=== PATIENT | male | born 1950 | race Caucasian/White ===

== ENCOUNTER 2024-12-31 23:06 | Inpatient (IN) | payer MEDICARE ==
[~2024-12-31] VITALS: Ht 177.8 cm; Wt 77.1 kg
[2024-12-31] MEDS ORDERED: DARU1TAB PO (23:53)
[2024-12-31] MEDS ORDERED: DOLU1TAB2 PO (23:53)
[2024-12-31] MEDS ORDERED: ATOR10TA PO (23:53)
[2025-01-01] MEDS: ONDANSETRON 4 MG/2 ML VIAL IV ONE (01:26)
[2025-01-01] MEDS: FAMOTIDINE. 20 MG/2 ML VIAL IV ONE (01:26)
[2025-01-01 01:28] LABS: BASOPHILS % (AUTO) 0.3 % (0.0-2.0); HEMATOCRIT 46.1 % (36.7-47.1); HEMOGLOBIN 15.6 g/dL (12.5-16.3); LYMPHOCYTES # (AUTO) 2.6 K/uL (0.8-4.8); LYMPHOCYTES % (AUTO) 16.4 % (20.5-51.5); MEAN CORPUSCULAR HEMOGLOBIN 30.4 uug (23.8-33.4); MEAN CORPUSCULAR HGB CONC 34 g/dL (32.5-36.3); MEAN CORPUSCULAR VOLUME 89.9 fL (73.0-96.2); MONOCYTES # (AUTO) 1.3 K/uL (0.1-1.30); MONOCYTES % (AUTO) 8.5 % (0.0-11.0); NEUTROPHILS # (AUTO) 11.8 K/uL (1.8-8.9); NEUTROPHILS % (AUTO) 74.8 % (38.5-71.5); PLATELET COUNT (AUTO) 255 K/uL (152-348); RED BLOOD CELL COUNT(AUTO) 5.13 MIL/uL (4.06-5.63); RED CELL DISTRIBUTION WIDTH 14.2 % (12.1-16.2); WHITE BLOOD COUNT (AUTO) 15.8 K/uL (3.6-10.2)
[2025-01-01] MEDS: IV NS 1000 ML 1,000 ML IV ONE (01:33)
[2025-01-01 01:38] LABS: DIFFERENTIAL COMMENT 1
[2025-01-01 01:39] LABS: CALCIUM 10.8 mg/dL (8.5-10.1); CARBON DIOXIDE 37 mmol/L (21-32); CHLORIDE 83 mmol/L (98-107); CREATININE 3.3 mg/dL (0.6-1.3); GLUCOSE 145 mg/dL (74-106); POTASSIUM 3.8 mmol/L (3.5-5.1); SODIUM SERUM 130 mmol/L (136-145); UREA NITROGEN, BLOOD 54 mg/dL (7-18)
[2025-01-01 01:45] LABS: ALANINE AMINOTRANSFERASE 22 U/L (16-63); ALBUMIN 4.1 g/dL (3.4-5.0); ALKALINE PHOSPHATASE 70 U/L (50-136); ASPARTATE AMINOTRANSFERASE 34 U/L (15-37); BILIRUBIN,DIRECT 0.4 mg/dL (0.0-0.2); BILIRUBIN,TOTAL 1.9 mg/dL (0.2-1.0); LIPASE 52 U/L (16-77); TOTAL PROTEIN, SERUM 8.7 g/dL (6.4-8.2)
[2025-01-01] MEDS ORDERED: MORPHINE SULFATE 4 MG/1 ML DISP.SYRIN ONE (02:07)
[2025-01-01] MEDS: MORPHINE SULFATE 4 MG/1 ML DISP.SYRIN IV ONE (02:12)
[2025-01-01] MEDS ORDERED: ACETAMINOPHEN 325 MG TABLET PO PRN (05:45)
[2025-01-01] MEDS ORDERED: MAGNESIUM HYDROXIDE 30 ML LIQUID UDC PO PRN (05:45)
[2025-01-01] MEDS ORDERED: IV NS 1000 ML 1,000 ML IV SCH (05:45)
[2025-01-01 06:08] LABS: *BILIRUBIN,URIN NEGATIVE (NEGATIVE); *CLARITY,URINE CLOUDY (CLEAR); *COLOR,URINE YELLOW (YELLOW); *KETONES,URINE 1+ (NEGATIVE); *PROTEIN,URINE 2+ (NEGATIVE); *UROBILINOGEN,URINE 0.2 E.U./dl (NORMAL); LEUKOCYTE ESTERASE ,URINE NEGATIVE (NEGATIVE); NITRITE, URINE NEGATIVE (NEGATIVE); UGLUCOSE NEGATIVE (NEGATIVE)
[2025-01-01 06:24] LABS: *BLOOD, URINE TRACE (NEGATIVE)
[2025-01-01 06:51] LABS: RBC,URINE 0-3 /HPF (0-3)
[2025-01-01 06:52] LABS: SQUAMOUS EPITHELIAL CELL,UR FEW /HPF (NONE SEEN)
[2025-01-01 06:53] LABS: BACTERIA,URINE MANY /HPF (NONE SEEN)
[2025-01-01] MEDS: IV NORMAL SALINE 1000 ML BAG IV ONE (07:45)
[2025-01-01] MEDS ORDERED: CEFTRIAXONE /D5W 50ML IVPB **ER PYXIS IV ONE (07:49)
[2025-01-01] MEDS: CEFTRIAXONE 1 G in IV DEXTROSE 5% 50 ML IV ONE (08:08)
[2025-01-01] MEDS ORDERED: ATOR20TA PO (08:41)
[2025-01-01] MEDS: PANTOPRAZOLE SODIUM 40 MG VIAL IV SCH (09:37)
[2025-01-01] MEDS ORDERED: DIATR MEGLU/DIATRIZOATE SODIUM 30 ML BOTTLE ONE (10:49)
[2025-01-01 11:50] VITALS: BP 140/72; TEMP 97.6; O2SAT 98
[2025-01-01] MEDS: MORPHINE SULFATE 2 MG/1 ML DISP.SYRIN IV PRN ×2 (14:03→16:52)
[2025-01-01 15:50] VITALS: BP 149/76; TEMP 97.7; O2SAT 98
[2025-01-01] MEDS: IV NS 1000 ML 1,000 ML IV PRN (18:28)
[2025-01-01 19:50] VITALS: BP 99/75; TEMP 98; O2SAT 91
[2025-01-01] MEDS: ONDANSETRON 4 MG/2 ML VIAL IV PRN (20:23)
[2025-01-01] MEDS: ATORVASTATIN 20 MG TABLET PO SCH (20:44)
[2025-01-02 04:48] VITALS: BP 136/86; TEMP 97.5; O2SAT 92
[2025-01-02] MEDS ORDERED: MORPHINE SULFATE 4 MG/1 ML DISP.SYRIN IV PRN (06:00)
[2025-01-02 06:55] LABS: BASOPHILS % (AUTO) 0.2 % (0.0-2.0); HEMATOCRIT 44.8 % (36.7-47.1); HEMOGLOBIN 15.1 g/dL (12.5-16.3); LYMPHOCYTES # (AUTO) 1.6 K/uL (0.8-4.8); LYMPHOCYTES % (AUTO) 12.3 % (20.5-51.5); MEAN CORPUSCULAR HEMOGLOBIN 30.5 uug (23.8-33.4); MEAN CORPUSCULAR HGB CONC 34 g/dL (32.5-36.3); MEAN CORPUSCULAR VOLUME 90.2 fL (73.0-96.2); MONOCYTES # (AUTO) 1.6 K/uL (0.1-1.30); MONOCYTES % (AUTO) 12.1 % (0.0-11.0); NEUTROPHILS # (AUTO) 9.8 K/uL (1.8-8.9); NEUTROPHILS % (AUTO) 75.4 % (38.5-71.5); PLATELET COUNT (AUTO) 238 K/uL (152-348); RED BLOOD CELL COUNT(AUTO) 4.97 MIL/uL (4.06-5.63); RED CELL DISTRIBUTION WIDTH 13.6 % (12.1-16.2)
[2025-01-02 07:11] LABS: DIFFERENTIAL COMMENT 1
[2025-01-02 07:43] LABS: ALANINE AMINOTRANSFERASE 25 U/L (16-63); ALBUMIN 3.8 g/dL (3.4-5.0); ALKALINE PHOSPHATASE 67 U/L (50-136); ASPARTATE AMINOTRANSFERASE 33 U/L (15-37); BILIRUBIN,DIRECT 0.3 mg/dL (0.0-0.2); BILIRUBIN,TOTAL 1.3 mg/dL (0.2-1.0); CALCIUM 9.9 mg/dL (8.5-10.1); CARBON DIOXIDE 39 mmol/L (21-32); CHLORIDE 94 mmol/L (98-107); CREATININE 2.5 mg/dL (0.6-1.3); GLUCOSE 128 mg/dL (74-106); MAGNESIUM 2.4 mg/dL (1.8-2.4); PHOSPHOROUS 6.4 mg/dL (2.5-4.9); POTASSIUM 3.7 mmol/L (3.5-5.1); SODIUM SERUM 141 mmol/L (136-145); TOTAL PROTEIN, SERUM 8.3 g/dL (6.4-8.2); UREA NITROGEN, BLOOD 57 mg/dL (7-18)
[2025-01-02] MEDS: CEFTRIAXONE 1 G in IV DEXTROSE 5% 50 ML IV SCH (07:55)
[2025-01-02 08:33] LABS: CREATINE KINASE, TOTAL 327 U/L (39-308)
[2025-01-02] MEDS ORDERED: COBICISTAT PO SCH (09:00)
[2025-01-02] MEDS ORDERED: DARUNAVIR PO SCH (09:00)
[2025-01-02 10:10] LABS: *BILIRUBIN,URIN NEGATIVE (NEGATIVE); *BLOOD, URINE 1+ (NEGATIVE); *CLARITY,URINE CLOUDY (CLEAR); *COLOR,URINE YELLOW (YELLOW); *KETONES,URINE NEGATIVE (NEGATIVE); *PROTEIN,URINE 2+ (NEGATIVE); *UROBILINOGEN,URINE 0.2 E.U./dl (NORMAL); LEUKOCYTE ESTERASE ,URINE 2+ (NEGATIVE); NITRITE, URINE NEGATIVE (NEGATIVE); PH,URINE 6.5 (5.0-8.0); UGLUCOSE NEGATIVE (NEGATIVE)
[2025-01-02 10:22] LABS: BACTERIA,URINE MODERATE /HPF (NONE SEEN); RBC,URINE 20-50 /HPF (0-3); WBC,URINE 50-80 /HPF (0-3)
[2025-01-02 10:23] LABS: URINE AMORPHOUS URATE FEW /HPF
[2025-01-02 11:01] LABS: *CREATININE,URINE 97.9 mg/dL (30-125); *URINE TOTAL PROTEIN RANDOM 67.6 mg/dL (<150/24HR)
[2025-01-02 11:08] VITALS: BP 138/44; TEMP 98.5; O2SAT 97
[2025-01-03 12:07] LABS: PTH, INTACT 27 pg/mL (15-65)
[2025-01-05 07:12] LABS: A/G RATIO 0.9 (0.7-1.7); ALBUMIN 3.7 g/dL (2.9-4.4); ALPHA-1-GLOBULIN 0.3 g/dL (0.0-0.4); ALPHA-2-GLOBULIN 1.2 g/dL (0.4-1.0); BETA GLOBULIN 1.1 g/dL (0.7-1.3); GAMMA GLOBULIN 1.3 g/dL (0.4-1.8); GLOBULIN, TOTAL 3.9 g/dL (2.2-3.9); M-SPIKE Not Observed g/dL (Not Observed); PROTEIN, TOTAL 7.6 g/dL (6.0-8.5)
== END 2025-01-02 13:55 | disposition home or self-care (01) | DRG 389 ==
LOC: ER 23:24 → MEDSURG3 01-01 05:15
PROVIDERS: ATTEND Nurse Practitioner Acute Care
PROC: 0D9670Z Drainage of Stomach with Drainage Device, Via Natural or Artificial Opening (ICD-10-PCS; principal; 2025-01-01)
DX: K56.609 Unspecified intestinal obstruction, unspecified as to partial versus complete obstruction (principal); E87.1 Hypo-osmolality and hyponatremia; E87.3 Alkalosis; N17.9 Acute kidney failure, unspecified; N13.6 Pyonephrosis; M48.56XA Collapsed vertebra, not elsewhere classified, lumbar region, initial encounter for fracture; E86.0 Dehydration; E86.1 Hypovolemia; Z90.79 Acquired absence of other genital organ(s); K80.20 Calculus of gallbladder without cholecystitis without obstruction; E78.5 Hyperlipidemia, unspecified; G89.29 Other chronic pain; M51.46 Schmorl's nodes, lumbar region; E83.52 Hypercalcemia; I25.10 Atherosclerotic heart disease of native coronary artery without angina pectoris; Z90.6 Acquired absence of other parts of urinary tract; Z87.440 Personal history of urinary (tract) infections; Z85.51 Personal history of malignant neoplasm of bladder; Z96.89 Presence of other specified functional implants; Z93.6 Other artificial openings of urinary tract status; Z79.899 Other long term (current) drug therapy
CPT/HCPCS: 36415; 71045; 74018; 74250; 83605; 83690; 83735; 83970; 84100; 84155; 84165; 84300; 85025; 85730; 87040; 87077; 87086; 93005; A4663; G0378; J0696; J2270; J2405; J2470; J3490; J7040; Q9963